=== PATIENT | male | born 2000 | race Caucasian/White ===

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

== ENCOUNTER 2020-01-24 16:14 | Emergency (ER) | payer BC ==
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
--- NOTE | 2020-01-24 17:31 | CR ---
Right humerus: 2 views of the right humerus were obtained. Comparison: No previous study. No radiopaque foreign object is seen. No fracture or other bony abnormality is seen. Impression: 1. No acute abnormality is seen on 2 view right humerus study. Diagnostic code #1 This report was dictated in MDT
--- NOTE | 2020-01-24 17:31 | CR ---
Left ribs: 4 views of the left ribs were obtained. Comparison: No previous rib exam. No discrete fracture, dislocation or other bony abnormality is appreciated. Impression: 1. No discrete abnormality is appreciated on left rib exam. Diagnostic code #1 This report was dictated in MDT
[2020-01-24] MEDS ORDERED: Ondansetron 4 MG/2 ML SDV IVPUSH ONE (17:50)
[2020-01-24] MEDS ORDERED: Lidocaine 1% 10 ML MDV INJECT ONE (17:51)
[2020-01-24] MEDS ORDERED: HYDROmorphone 0.5 MG/0.5 ML Syringe IVPUSH ONE (17:52)
--- NOTE | 2020-01-24 19:20 | CT ---
Head CT Technique: Multiple axial sections through the brain were obtained. Intravenous contrast was not utilized. Comparison: No prior intracranial imaging is available. Findings: Ventricles along with basal cisterns and sulci over the convexities are within normal limits for the patient's age. No abnormal parenchymal densities are seen. No evidence of intracranial hemorrhage. No midline shift or mass-effect is seen. Visualized paranasal sinuses show nothing acute. Visualized mastoid sinuses show nothing acute. No acute calvarial finding is seen. Impression: 1. Nothing acute is identified on noncontrast head CT exam. Diagnostic code #1 This report was dictated in MDT
--- NOTE | 2020-01-24 19:21 | CT ---
CT lumbar spine Technique: Multiple axial sections through the lumbar spine were obtained. Intravenous contrast was not utilized. Findings: Vertebral body heights and disc spaces are maintained. No abnormal subluxation is seen. No acute fracture is appreciated. Posterior discs are preserved. No central canal stenosis or neural foraminal stenosis is seen. Impression: 1. Nothing acute is appreciated on CT study of the lumbar spine. Diagnostic code #1 This report was dictated in MDT
== END 2020-01-24 20:25 | disposition home or self-care (01) ==
LOC: JD.ED 16:14
DX: S41.111A Laceration without foreign body of right upper arm, initial encounter (principal); S39.012A Strain of muscle, fascia and tendon of lower back, initial encounter; S33.5XXA Sprain of ligaments of lumbar spine, initial encounter; S20.212A Contusion of left front wall of thorax, initial encounter; V43.53XA Car driver injured in collision with pick-up truck in traffic accident, initial encounter
CPT/HCPCS: 12001; 70450; 71100; 72131; 73060; 96374; 96375; 99285; J1170; J2001; J2405; 99283

== ENCOUNTER 2022-05-02 10:57 | Emergency (ER) | payer BC ==
[2022-05-02] MEDS ORDERED: Lactated Ringers 1,000 ML IV ONE (12:07)
[2022-05-02] MEDS ORDERED: Pantoprazole 40 MG Vial IVPUSH ONE (12:07)
[2022-05-02] MEDS ORDERED: Ondansetron 4 MG/2 ML SDV IVPUSH ONE (12:07)
[2022-05-02] MEDS ORDERED: Sodium Chloride 0.9% 10 ML Syringe FLUSH PRN (12:07)
== END 2022-05-02 13:45 | disposition home or self-care (01) ==
LOC: JD.ED 10:57
DX: E86.0 Dehydration (principal)
CPT/HCPCS: 36415; 80053; 85025; 96361; 96374; 96375; 99282; 99284-25